=== PATIENT | female | born 1975 | race Two or more races ===

== ENCOUNTER 2024-04-09 09:00 | Inpatient (IN) | payer OTHER ==
[~2024-04-09] VITALS: Ht 30.5 cm; Wt 59.0 kg
[2024-04-09 10:01] VITALS: BP 140/80
[2024-04-09] MEDS ORDERED: ATACAND16 MG PO (10:04)
[2024-04-12] MEDS ORDERED: CEFAZOLIN SODIUM 1,000 MG VIAL ONE (14:40)
[2024-04-12] MEDS ORDERED: POVIDONE-IODINE 118 ML BOTT TOP ONE (14:40)
[2024-04-12] MEDS ORDERED: METRONIDAZOLE/SODIUM CHLORIDE 500 MG/100 ML PIGGYBACK IV ONE (15:53)
[2024-04-12] MEDS ORDERED: HEMOSTATIC MATRIX 1 KIT KIT TOP ONE (17:39)
[2024-04-12] MEDS ORDERED: SURGIFLO APPLICATOR 1 EACH APPL TOP ONE (17:40)
[2024-04-12] MEDS ORDERED: KETOROLAC TROMETHAMINE 30 MG VIAL IM SCH (18:00)
[2024-04-12] MEDS ORDERED: ACETAMINOPHEN 500 MG GEL..CAP PO SCH (18:00)
[2024-04-12] MEDS ORDERED: KETOROLAC TROMETHAMINE 30 MG VIAL IV NR (18:00)
[2024-04-12] MEDS ORDERED: MORPHINE SULFATE 4 MG/ML CARTRIDGE IV PRN (18:00)
[2024-04-12] MEDS ORDERED: RINGERS SOLUTION,LACTATED 1,000 ML IV SCH (18:00)
[2024-04-12] MEDS ORDERED: MORPHINE SULFATE 4 MG/ML VIAL IV ONE (18:35)
[2024-04-12] MEDS ORDERED: KETOROLAC TROMETHAMINE 30 MG VIAL IM ONE (20:05)
[2024-04-12] MEDS ORDERED: KETOROLAC TROMETHAMINE 30 MG VIAL ONE (20:05)
[2024-04-12] MEDS ORDERED: DOCUSATE SODIUM 100MG CAP PO SCH (21:00)
[2024-04-12] MEDS ORDERED: SIMETHICONE 125 MG CAPSULE PO SCH (21:00)
[2024-04-12] MEDS ORDERED: FAMOTIDINE/PF 20 MG/2 ML VIAL IV PUSH SCH (21:00)
[2024-04-12] MEDS ORDERED: GABAPENTIN 300 MG CAPSULE PO SCH (21:00)
[2024-04-12] MEDS ORDERED: GABAPENTIN 300 MG CAPSULE PO ONE (21:22)
[2024-04-12] MEDS ORDERED: SIMETHICONE 125 MG CAPSULE PO ONE (21:22)
[2024-04-12] MEDS ORDERED: FAMOTIDINE/PF 20 MG/2 ML VIAL ONE (21:23)
[2024-04-12 23:13] LABS: HEMOGLOBIN 13.1 g/dL (12.0-15.00); MEAN CELL VOLUME 80.1 fL (80.00-100.00); MEAN CORPUSCULAR HEMOGLOBIN 26.2 pg (27.00-32.0); MEAN CORPUSCULAR HGB CONC 32.6 g/dl (32.0-36.0); PLATELET COUNT 291 K/uL (150-450); RED BLOOD COUNT 4.99 M/uL (4.00-6.00); RED CELL DISTRIBUTION WIDTH 14.4 % (11.5-14.5)
[2024-04-12 23:35] LABS: ALBUMIN 3.7 gm/dL (3.4-5.0); CALCIUM 8.9 mg/dL (8.5-10.1); CREATININE SERUM 0.76 mg/dL (0.55-1.02); GFR 81.22; PHOSPHOROUS 3.5 mg/dL (2.5-4.9); POTASSIUM 4.83 mEq/L (3.5-5.1)
[2024-04-13] MEDS ORDERED: KETOROLAC TROMETHAMINE 30 MG VIAL ONE (00:07)
[2024-04-13] MEDS ORDERED: ACETAMINOPHEN 500 MG GEL..CAP PO ONE (00:07)
[2024-04-13] MEDS ORDERED: CEFAZOLIN SODIUM 1,000 MG VIAL ONE (00:08)
[2024-04-13] MEDS ORDERED: KETOROLAC TROMETHAMINE 30 MG VIAL IM ONE (00:20)
[2024-04-13] MEDS ORDERED: METOCLOPRAMIDE HCL 5 MG/ML VIAL ONE (00:31)
[2024-04-13] MEDS ORDERED: METOCLOPRAMIDE HCL 5 MG/ML VIAL IV SCH (01:00)
[2024-04-13] MEDS ORDERED: CEFAZOLIN SODIUM 1,000 MG VIAL IV SCH (01:00)
[2024-04-13 01:13] VITALS: BP 140/80; O2SAT 98
[2024-04-13 03:17] LABS: HEMATOCRIT 37.5 % (36.0-45.00); HEMOGLOBIN 12.1 g/dL (12.0-15.00); MEAN CELL VOLUME 80.4 fL (80.00-100.00); MEAN CORPUSCULAR HEMOGLOBIN 25.9 pg (27.00-32.0); MEAN CORPUSCULAR HGB CONC 32.3 g/dl (32.0-36.0); PLATELET COUNT 259 K/uL (150-450); RED BLOOD COUNT 4.66 M/uL (4.00-6.00); RED CELL DISTRIBUTION WIDTH 13.9 % (11.5-14.5)
[2024-04-13 03:40] LABS: ALBUMIN 3.3 gm/dL (3.4-5.0); CALCIUM 8.4 mg/dL (8.5-10.1); CREATININE SERUM 0.8 mg/dL (0.55-1.02); GFR 76.56; PHOSPHOROUS 3.6 mg/dL (2.5-4.9); POTASSIUM 4.11 mEq/L (3.5-5.1)
[2024-04-13 04:30] VITALS: BP 114/75
[2024-04-13 08:17] VITALS: BP 104/54; O2SAT 98
[2024-04-13] MEDS ORDERED: ENOXAPARIN SODIUM 40 MG/0.4 ML SYRINGE SUBCUTANEO SCH (09:00)
== END 2024-04-13 13:36 | disposition home or self-care (01) | DRG 743 ==
LOC: SURG 04-12 07:00 → O/R 04-12 07:29 → SURG 04-12 09:00 → OB/GYN 04-12 19:05
PROVIDERS: ADMIT Obstetrics & Gynecology; ATTEND Obstetrics & Gynecology
PROC: 0UT74ZZ Resection of Bilateral Fallopian Tubes, Percutaneous Endoscopic Approach (ICD-10-PCS; 2024-04-12)
PROC: 0TNB4ZZ Release Bladder, Percutaneous Endoscopic Approach (ICD-10-PCS; 2024-04-12)
PROC: 0DNW4ZZ Release Peritoneum, Percutaneous Endoscopic Approach (ICD-10-PCS; 2024-04-12)
PROC: 0UN94ZZ Release Uterus, Percutaneous Endoscopic Approach (ICD-10-PCS; 2024-04-12)
PROC: 0USG4ZZ Reposition Vagina, Percutaneous Endoscopic Approach (ICD-10-PCS; 2024-04-12)
PROC: [UNRECOGNIZED PROCEDURE] (2024-04-12)
PROC: 0UT94ZZ Resection of Uterus, Percutaneous Endoscopic Approach (ICD-10-PCS; principal; 2024-04-12 07:00)
DX: D25.2 Subserosal leiomyoma of uterus (principal); N80.03 Adenomyosis of the uterus; N93.9 Abnormal uterine and vaginal bleeding, unspecified